=== PATIENT | male | born 1990 | race African-American/Black ===

== ENCOUNTER 2018-03-28 23:43 | Emergency (ER) | payer MEDICAID ==
[~2018-03-28] VITALS: Ht 177.8 cm; Wt 59.0 kg
[2018-03-28 23:50] VITALS: BP 114/75
== END 2018-03-29 01:35 | disposition left against medical advice (07) ==
LOC: ER 23:46
DX: K12.2 Cellulitis and abscess of mouth (principal); Z53.21 Procedure and treatment not carried out due to patient leaving prior to being seen by health care provider
CPT/HCPCS: 70486